=== PATIENT | female | born 1955 | race Caucasian/White ===

== ENCOUNTER 2019-07-28 16:58 | Emergency (ER) | payer BC ==
[~2019-07-28] VITALS: Ht 160 cm; Wt 86.2 kg
[2019-07-28 17:00] VITALS: BP_SYST 159
--- NOTE | 2019-07-28 17:00 | NUR ---
Patient to ER bed 02 to gown for evaluation. Side rails up. Report received from DAISY Clinton
--- NOTE | 2019-07-28 17:10 | NUR ---
ER at bedside examining patient.
--- NOTE | 2019-07-28 17:12 | NUR ---
Patient ambulated to bedside with complaining of "migraine like" headache since with right facial numbness. Denies any light sensitivity. Reports vomiting since yesterday. Patient reports taking Excedrin with mild relief. Pupils equal and reactive to light bilaterally. No facial droop noted. No smile deficit noted. Speech normal for patient. Patient is alert and oriented to person, place, time. Bilateral hand refuse collector equal. Bilateral foot push equal. Patient also reports the last 6 months she has been hypertensive but attributes that to her weight gain of 50 lbs after she stopped running due to a foot injury. Pain 03/31. No other complaints/injuries per patient or as noted. Will continue to monitor.
[2019-07-28] MEDS ORDERED: PROCHLORPERAZINE EDISYLATE 10 MG/2 ML VIAL IM ONE (17:15)
[2019-07-28] MEDS ORDERED: KETOROLAC TROMETHAMINE 60 MG/2 ML VIAL IM ONE (17:15)
--- NOTE | 2019-07-28 17:36 | NUR ---
Patient transported to radiology via wheelchair, accompanied by radiology staff member Waldemar.
--- NOTE | 2019-07-28 17:50 | NUR ---
Returned from radiology, back to [facility].
--- NOTE | 2019-07-28 18:24 | NUR ---
Pt resting in ed bed comfortably. Bedside speaking with patient
[2019-07-28 18:38] VITALS: BP_SYST 164
--- NOTE | 2019-07-28 18:38 | NUR ---
Patient given written and verbal discharge instructions and verbalizes understanding. ER MD discussed with patient the results and treatment provided. Patient in stable condition. ID arm band removed. Rx of tramadol given. Patient educated on pain management and to follow up with PMD. Pain Scale . Opportunity for questions provided and answered. Medication side effect fact sheet provided.
== END 2019-07-28 18:38 | disposition home or self-care (01) ==
LOC: SED 16:58
DX: G43.909 Migraine, unspecified, not intractable, without status migrainosus (principal); I10 Essential (primary) hypertension; Z91.041 Radiographic dye allergy status
CPT/HCPCS: 70450; 96372; 99284; J0780; J1885